=== PATIENT | male | born 1960 | race Caucasian/White ===

== ENCOUNTER 2017-10-27 11:45 | Inpatient (IN) | payer BC ==
[~2017-10-27] VITALS: Ht 177.8 cm; Wt 88.5 kg
[~2017-10-27 11:45] MED LIST: IBUP-232 PO; LOPE-1 PO; ONDA8TAB7 PO
[2017-10-27] MEDS ORDERED: ePHEDrine/NS 25 MG/5 ML SYRINGE IV ONE (12:00)
[2017-10-27] MEDS ORDERED: LIDOCAINE HCL 1% PF 5 ML SYRINGE OTHER ONE (12:00)
[2017-10-27] MEDS ORDERED: GLYCOPYRROLATE 1 MG/5 ML SYRINGE IV PUSH ONE (12:00)
[2017-10-27] MEDS ORDERED: LACTATED RINGER'S 1000 ML INJ 1,000 ML IV ONE (12:00)
[2017-10-27] MEDS ORDERED: DEXAMETHASONE SOD PHOS 4 MG/ML VIAL IV ONE (12:00)
[2017-10-27] MEDS ORDERED: ROCURONIUM INJ 50 MG/5 ML SYRINGE IV PUSH ONE (12:00)
[2017-10-27] MEDS ORDERED: NEOSTIGMINE 5 MG/5 ML SYRINGE IV PUSH ONE (12:00)
[2017-10-27] MEDS ORDERED: ONDANSETRON HCL 4 MG/2 ML VIAL IV ONE (12:00)
[2017-10-27] MEDS ORDERED: SODIUM CHLOR 0.9% 1000 ML INJ 2,000 ML IV ONE (12:00)
[2017-10-27] MEDS ORDERED: PROPOFOL 200 MG/20 ML AMP IV ONE (12:00)
[2017-10-27] MEDS ORDERED: fentaNYL CITRATE 250 MCG/5 ML AMP ONE (12:54)
[2017-10-27] MEDS ORDERED: CIPR500T2 PO (12:56)
[2017-10-27] MEDS ORDERED: POVIDONE IODINE 5% (ANTISEPSIS KIT) 4 APPLICATIONS EACH NARE PRN (13:00)
[2017-10-27] MEDS ORDERED: LACTATED RINGER'S 1000 ML IV PRN (13:00)
[2017-10-27] MEDS ORDERED: METRONIDAZOLE 500 MG/100 ML ISONTONIC SOLN IV SCH (13:00)
[2017-10-27] MEDS ORDERED: METOPROLOL TARTRATE 25 MG TAB PO PRN (13:00)
[2017-10-27] MEDS ORDERED: ceFAZolin 1,000 MG/NS 100 ML IV SCH ×2 (13:00)
[2017-10-27] MEDS ORDERED: SODIUM CHLORID 0.9% 500 ML IV PRN (13:00)
[2017-10-27] MEDS ORDERED: CHLORHEXIDINE GLUCONATE 2 % 1 PACK (2 CLOTHS) TOPICAL PRN (13:00)
[2017-10-27] MEDS ORDERED: INSULIN HUMAN REGULAR 1,000 UNITS/10 ML VIAL SQ PRN (13:00)
[2017-10-27] MEDS ORDERED: DEXT 5%-NACL 0.9% 1000 ML INJ 1,000 ML IV SCH (13:00)
[2017-10-27] MEDS ORDERED: ALVIMOPAN 12 MG CAPSULE ONE (13:11)
[2017-10-27] MEDS ORDERED: ALVIMOPAN 12 MG CAPSULE - On Call PO SCH (13:30)
[2017-10-27] MEDS ORDERED: ACETAMINOPHEN 1000 MG/100 ML 100 ML IV ONE (14:22)
[2017-10-27] MEDS ORDERED: ENALAPRILAT 1.25 MG/ML VIAL IV PUSH PRN (16:30)
[2017-10-27] MEDS ORDERED: NALOXONE HCL 0.4 MG/ML AMP IV PUSH PRN (16:30)
[2017-10-27] MEDS ORDERED: Post-op Orders (for Pharmacy) XX ONE (16:30)
[2017-10-27] MEDS ORDERED: MORPHINE SULFATE 30 MG/30 ML PCA IV SCH (16:30)
[2017-10-27] MEDS ORDERED: POTASSIUM CHLOR 20 MEQ PREMIX 100 ML IV PRN (16:30)
[2017-10-27] MEDS ORDERED: KETOROLAC TROMETHAMINE 30 MG/ML (IVP) VIAL IVP PRN (16:30)
[2017-10-27] MEDS: PCA - TOTAL MG MORPHINE DELIVERED PER SHIFT SCH ×2 (16:30→22:00)
[2017-10-27] MEDS ORDERED: POTASSIUM CHLOR 40 MEQ PREMIX 100 ML IV PRN (16:30)
[2017-10-27] MEDS ORDERED: SODIUM CHLORIDE 0.9% FLUSH 10 ML FLUSH IV FLUSH PRN (16:30)
[2017-10-27] MEDS ORDERED: ZOLPIDEM TARTRATE 5 MG TAB PO PRN (16:30)
[2017-10-27] MEDS ORDERED: DO NOT ADM ANY ANTICOAGULANT DRUGS PRN (16:40)
[2017-10-27] MEDS ORDERED: *morphine SULFATE 4 MG/ML PERIprocedure ONLY ONE (17:23)
--- NOTE | 2017-10-27 17:28 | MP ---
cc: Calos Chase MD,Kiera Kaur,Rebecca Jensen,Ondina ALEXANDER DATE OF OPERATION: 10/27/2017 PREOPERATIVE DIAGNOSIS: Rectal carcinoma. POSTOPERATIVE DIAGNOSIS: Rectal carcinoma. PROCEDURE PERFORMED: Rectosigmoidectomy with low anterior resection, coloanal anastomosis and diverting loop ileostomy with intraoperative colonoscopy and liver biopsy. SURGEON: Calos Chase MD RESIDENTIAL MONITOR: Dr. Tello ANESTHESIA: General endotracheal. ESTIMATED BLOOD LOSS: 200 mL OPERATIVE FINDINGS: [place] for [place] large bulky, near obstructing rectal cancer. He underwent colonoscopy by Dr. Alireza Junior and then underwent radiation therapy and chemotherapy with Dr. Rebecca Kaur and Dr. Ondina Jensen. This was a bulky lesion that had quite a bit of shrinkage, but did not disappear. It caused circumferential narrowing, but prior to surgery, I was able to place a flexible sigmoidoscope through the tumor. The bottom edge of the tumor was approximately 5-6 cm above the anorectal ring, about 10 cm above the anal verge. At surgery, he had quite a small male pelvis with a bulky rectal cancer, but a full rectosigmoid resection was done with a total mesenteric excision right to the lowermost portion of the rectum with a stapled coloanal anastomosis and a diverting ileostomy. Of note, in the right lobe of the liver was a small 1 mm lesion that was excised and sent for permanent section in the event it was metastatic disease. No other suspicious metastatic lesions were seen in the abdominal cavity. The tumor was quite bulky and abutted the prostate and bladder posteriorly, but we were able to dissect it free. Intraoperative colonoscopy showed a small 6 mm polyp at about 30 cm after resection and anastomosis. OPERATIVE TECHNIQUE: The patient was placed on the table in supine position. After adequate general endotracheal anesthesia, the legs were placed in the perineal lithotomy position. The abdomen and perineum were prepped and draped in the usual manner. A Lazar catheter was placed with mild difficulty, but it was able to be placed. Exploration of the abdominal cavity revealed the above-mentioned findings. Next, the abdomen was prepped and draped in the usual manner and a transverse infraumbilical skin incision was made and carried down through the subcutaneous tissue and the rectus muscles and the peritoneal cavity was entered with the above-mentioned findings. There was a small amount of ascites. This was aspirated free. The liver was normal except for this 1 mm nodule on the right dome as mentioned and it was excised with electrocautery and sent for permanent section. Remainder of the abdominal exploration as described above was normal. Our attention was turned to the sigmoid colon, which was quite redundant and was mobilized along its peritoneal reflection up to, but not including, the splenic flexure of the colon. The inferior mesenteric artery was clamped, cut and doubly ligated with 0 Vicryl ligature and the inferior mesenteric vein was taken proximally after clamping, cutting and ligating as well. The retrorectal space was entered and the dissection was taken down posteriorly. It was somewhat difficult because the rectal cancer and mesorectum was quite bulky and he had a small male pelvis, but we were able to dissect freely down posteriorly, laterally and then finally anteriorly. We were able to enter the cul-de-sac and divide the Denonvilliers fascia and dissect distally to the pelvic floor circumferentially. A full total mesenteric excision was done without breaching the mesentery. Next, the contour stapling device was placed around the lower rectum, just above the dentate line and it was fired, closing the rectal stump and dividing the rectum. The margin from the tumor was approximately 5 cm. Next, the area of the good quality sigmoid colon was identified for the area of the anastomosis and the remainder of the mesentery was clamped, cut and ligated, and then the pursestring stapling device was placed in the colon and the colon was divided and the specimen was removed from the table. Specimen was opened, revealing a circumferential ulcerated residual carcinoma or simply an ulcer, however, there was quite a stenosis associated with this. Dr. Tello then placed the EEA instrument transanally and the trocar was brought out through the center of the contour staple line and the instrument was connected, closed and fired, creating the circular anastomosis. Proctosigmoidoscopy examination was then done with air insufflation and saline solution in the pelvis. No air leaks were identified. Dr. Tello then did a Colonoscopy to the cecum, with 1 small 6 mm polyp at 30 cm in the colon, which was left alone. The bowel was checked for air leaks again and no leaks were identified with saline solution in the pelvis. Hemostasis was maintained throughout with electrocautery and ligature and the abdominal cavity was irrigated thoroughly with several liters of saline solution, aspirated dry, place was chosen for the ileostomy and the distal limb of the ileum was stapled closed with a TX 30 stapling device and the mesentery was opened for a short distance. A stoma site was made in the right upper quadrant and the lateral portion of the rectus muscle and the bowel was brought out through the stoma site. Next, the bowels were replaced in the abdominal cavity in an pyridine operator manner and the omentum was placed on the left side of the small bowel and left colic gutter and the abdominal cavity was closed in layers using a double stranded #1 PDS for the posterior rectus sheath. A liter of irrigation was used for the muscle layer and then the anterior rectus sheath was closed with double stranded #1 PDS as well. Subcutaneous tissue was irrigated thoroughly with saline solution, aspirated dry and the skin was closed with running 3-0 Vicryl subcuticular suture. The ileostomy was then matured in an end loop fashion with interrupted 3-0 Vicryl sutures and a 57 mm appliance was placed. It should be mentioned that a 10 flat Eric drain was placed in the pelvis posterior to the colorectal anastomosis and brought out through a separate stab wound in the right lower quadrant. Sponge, needle and instrument counts were reported as correct. Estimated blood loss was 200 mL. Operating time was 2 hours. The patient tolerated the procedure well and left the operating room in good condition. MD SHAUNA Nguyen/JEREL , 04:47 PM , 05:27 PM
[2017-10-27] MEDS: D5-LR + KCL 20 MEQ INJ 1,000 ML IV SCH ×2 (17:40→22:15)
[2017-10-27] MEDS ORDERED: ONDANSETRON ODT 4 MG TAB PO PRN (17:45)
[2017-10-27] MEDS: METOCLOPRAMIDE HCL 10 MG/2 ML VIAL IVS SCH (17:50)
[2017-10-27 17:51] LABS: BICARBONATE 24.8 MEQ/L (21.0-32.0); CALCIUM 7.8 MG/DL (8.5-10.1); CREATININE 0.86 MG/DL (0.60-1.30)
[2017-10-27 18:15] VITALS: BP 145/65; PULSE 59; PULSE 61; RESP 16; TEMP 97.3; O2SAT 93
[2017-10-27 18:31] LABS: AUTOMATED NEUTROPHIL # 11.5 TH/MM3 (1.8-7.7); BASOPHIL # 0.1 TH/MM3 (0-0.2); BASOPHIL % 0.7 % (0.0-2.0); EOSINOPHIL # 0.1 TH/MM3 (0-0.4); EOSINOPHIL % 0.5 % (0.0-4.0); HEMATOCRIT 40.5 % (39.0-51.0); HEMOGLOBIN 13.6 GM/DL (13.0-17.0); LYMPH % 2.6 % (9.0-44.0); LYMPHOCYTE # 0.3 TH/MM3 (1.0-4.8); MEAN CELL VOLUME 93.8 FL (80.0-100.0); MEAN CORPUSCULAR HEMOGLOBIN 31.5 PG (27.0-34.0); MEAN CORPUSCULAR HGB CONC 33.6 % (32.0-36.0); MEAN PLATELET VOLUME 8.7 FL (7.0-11.0); MONO % 4.1 % (0.0-8.0); MONOCYTE # 0.5 TH/MM3 (0-0.9); NEUT % 92.1 % (16.0-70.0); PLATELET COUNT 203 TH/MM3 (150-450); RED BLOOD COUNT 4.31 MIL/MM3 (4.50-5.90); RED CELL DISTRIBUTION WIDTH 14.6 % (11.6-17.2); WHITE BLOOD COUNT 12.5 TH/MM3 (4.0-11.0)
[2017-10-27 19:00] VITALS: BP 141/68; PULSE 62; RESP 18; TEMP 97.7; O2SAT 96
[2017-10-27] MEDS: SODIUM CHLORIDE 0.9% FLUSH 10 ML FLUSH IV FLUSH SCH (21:19)
[2017-10-27] MEDS: metroNIDAZOLE 500 MG INJ 100 ML IV SCH (21:19)
[2017-10-27 23:00] VITALS: BP 131/71; PULSE 64; PULSE 69; RESP 16; TEMP 98.1; O2SAT 98
[2017-10-28] VITALS (21 sets, daily range): BP systolic 126–149; BP diastolic 65–69; PULSE 52–80; RESP 16–18; TEMP 97.3–98.4; O2SAT 92–100
[2017-10-28] MEDS: METOCLOPRAMIDE HCL 10 MG/2 ML VIAL IVS SCH ×5 (02:18→23:11)
[2017-10-28] MEDS: D5-LR + KCL 20 MEQ INJ 1,000 ML IV SCH ×2 (03:12→09:36)
[2017-10-28 04:28] LABS: BASOPHIL % 0.1 % (0.0-2.0); HEMATOCRIT 40.6 % (39.0-51.0); HEMOGLOBIN 13.8 GM/DL (13.0-17.0); LYMPH % 1.6 % (9.0-44.0); LYMPHOCYTE # 0.2 TH/MM3 (1.0-4.8); MEAN CELL VOLUME 94.2 FL (80.0-100.0); MEAN PLATELET VOLUME 8.8 FL (7.0-11.0); MONO % 4.3 % (0.0-8.0); MONOCYTE # 0.6 TH/MM3 (0-0.9); PLATELET COUNT 182 TH/MM3 (150-450); RED BLOOD COUNT 4.31 MIL/MM3 (4.50-5.90); RED CELL DISTRIBUTION WIDTH 14.6 % (11.6-17.2); WHITE BLOOD COUNT 13.8 TH/MM3 (4.0-11.0)
[2017-10-28 05:05] LABS: BICARBONATE 21.5 MEQ/L (21.0-32.0); CALCIUM 7.8 MG/DL (8.5-10.1); CREATININE 0.98 MG/DL (0.60-1.30)
[2017-10-28] MEDS: metroNIDAZOLE 500 MG INJ 100 ML IV SCH ×2 (05:14→13:06)
[2017-10-28] MEDS: PCA - TOTAL MG MORPHINE DELIVERED PER SHIFT SCH ×3 (06:00→22:00)
[2017-10-28] MEDS: ALVIMOPAN 12 MG CAPSULE PO SCH ×2 (08:18→20:39)
[2017-10-28] MEDS: PANTOPRAZOLE SODIUM 40 MG VIAL IVP SCH (08:18)
[2017-10-28] MEDS: SODIUM CHLORIDE 0.9% FLUSH 10 ML FLUSH IV FLUSH SCH ×2 (08:19→20:39)
--- NOTE | 2017-10-28 14:55 | EKG ---
Date Performed: 10/27/2017 Time Performed: 12:16:52 PTAGE: 57 years EKG: SINUS BRADYCARDIA BORDERLINE ECG NO PREVIOUS TRACING DOCTOR: Kushal Turner Interpretating Date/Time 10/28/2017 14:52:43
[2017-10-28] MEDS: HEPARIN SODIUM - SQ 10,000 UNITS/ML VIAL SQ SCH ×2 (15:47→23:12)
--- NOTE | 2017-10-28 16:27 | HHI.FF ---
Face to Face Verification Diagnosis: (1) Rectal cancer Physical Therapy Order: Evaluate and Treat, Improve ambulation, Strength and gait training Home Health Nursing Order: Medical education Signs/symptoms of disease process Wound care and dressing changes Instructions: stoma teaching I have seen patient Arvind Post on 10/28/17. My clinical findings support the need for the requested home health care services because: Ltd mobility - disease progression Deconditioned w/ increased weakness Need for psychosocial assistance Infection w/ risk of complications I certify that my clinical findings support that this patient is homebound because: Post-op weakness Connor Vallejo MD Oct 28, 2017 16:27
[2017-10-28] MEDS: POTASSIUM CHLORIDE INJ 20 MEQ in LACTATED RINGER'S 1000 ML INJ 1,000 ML IV SCH (17:23)
--- NOTE | 2017-10-28 17:32 | PD.WCN.NOT ---
Wound Consult Description: Consult for NEW OSTOMY TEACHING per Dr Chase Communicated with: Patient Recommendation: Change ostomy appliance on right side abdomen every 3-5 days and PRN for leaks. Empty pouch of effluent when 1/3-1/2 full. Additional Information: Patient seen in [facility] for ostomy assessment and teaching. Ostomy Type: Ileostomy Surgeon: Calos Chase MD Date of Surgery: October 27, 2017 Complete: Starter kit (Verbal consent obtained), Education materials (Left at bedside with contents taken out and explained to patient) Educated patient on: Color and size of stoma Output Changing appliance Emptying pouch Starter kit Additional information Stoma is located on the right side abdomen measuring ~1 1/2" round, pink, edematous, moderately protruding, functioning with green liquid effluent noted in pouch that was not emptied at this time. Will follow up with patient @0800 on TuesdayOctober 31. Pam Kraus [facility] Oct 28, 2017 17:32
[2017-10-29] VITALS (20 sets, daily range): BP systolic 132–162; BP diastolic 66–88; PULSE 51–82; RESP 16–18; TEMP 97.4–98.7; O2SAT 91–96
[2017-10-29 03:59] LABS: AUTOMATED NEUTROPHIL # 8.5 TH/MM3 (1.8-7.7); BASOPHIL # 0.1 TH/MM3 (0-0.2); BASOPHIL % 0.7 % (0.0-2.0); EOSINOPHIL # 0.1 TH/MM3 (0-0.4); EOSINOPHIL % 1.2 % (0.0-4.0); HEMOGLOBIN 13.4 GM/DL (13.0-17.0); LYMPH % 5.6 % (9.0-44.0); LYMPHOCYTE # 0.6 TH/MM3 (1.0-4.8); MEAN CELL VOLUME 94.1 FL (80.0-100.0); MEAN CORPUSCULAR HEMOGLOBIN 31.6 PG (27.0-34.0); MEAN CORPUSCULAR HGB CONC 33.6 % (32.0-36.0); MONO % 6.3 % (0.0-8.0); MONOCYTE # 0.6 TH/MM3 (0-0.9); NEUT % 86.2 % (16.0-70.0); PLATELET COUNT 187 TH/MM3 (150-450); RED BLOOD COUNT 4.26 MIL/MM3 (4.50-5.90); RED CELL DISTRIBUTION WIDTH 14.7 % (11.6-17.2); WHITE BLOOD COUNT 9.8 TH/MM3 (4.0-11.0)
[2017-10-29 04:27] LABS: BICARBONATE 26.9 MEQ/L (21.0-32.0); CALCIUM 8.1 MG/DL (8.5-10.1); CREATININE 0.73 MG/DL (0.60-1.30)
[2017-10-29] MEDS: POTASSIUM CHLORIDE INJ 20 MEQ in LACTATED RINGER'S 1000 ML INJ 1,000 ML IV SCH ×2 (05:10→20:46)
[2017-10-29] MEDS: PCA - TOTAL MG MORPHINE DELIVERED PER SHIFT SCH ×4 (05:34→21:26)
[2017-10-29] MEDS: METOCLOPRAMIDE HCL 10 MG/2 ML VIAL IVS SCH ×3 (05:36→19:24)
[2017-10-29] MEDS: ALVIMOPAN 12 MG CAPSULE PO SCH ×2 (08:23→21:24)
[2017-10-29] MEDS: PANTOPRAZOLE SODIUM 40 MG VIAL IVP SCH (08:24)
[2017-10-29] MEDS: HEPARIN SODIUM - SQ 10,000 UNITS/ML VIAL SQ SCH ×2 (08:25→16:12)
[2017-10-29] MEDS: SODIUM CHLORIDE 0.9% FLUSH 10 ML FLUSH IV FLUSH SCH ×2 (08:25→21:00)
--- NOTE | 2017-10-29 08:34 | HHI.PR ---
Subjective Remarks C/R Surg POD # 2 afebrile, VSS UO good stoma functioning AMANDA mod Objective - Vital Signs Date Time Temp Pulse Resp B/P (MAP) Pulse Ox O2 Delivery O2 Flow Rate FiO2 10/29/17 06:09 61 10/29/17 06:08 18 10/29/17 04:00 98.5 146/76 (99) 92 10/28/17 20:00 Room Air 10/28/17 19:57 21 10/28/17 07:54 2.00 Result Diagram: 10/29/17 0320 10/29/17 0320 Objective Remarks PE alert Abd - soft, wound dry, stoma pink A/P Assessment and Plan Imp: adv diet decr IVF tx to floor leave Connor Powers MD Oct 29, 2017 08:34
[2017-10-29] MEDS: ACETAMINOPHEN/HYDROcodone 325 MG/5 MG TAB PO PRN ×2 (12:06→19:25)
[2017-10-29] MEDS: D5-LR + KCL 20 MEQ INJ 1,000 ML IV SCH (19:24)
[2017-10-30] VITALS: BP 132/59; PULSE 70; RESP 18; TEMP 97.9; O2SAT 92
[2017-10-30] MEDS: METOCLOPRAMIDE HCL 10 MG/2 ML VIAL IVS SCH ×2 (00:01→04:40)
[2017-10-30] MEDS: PCA - TOTAL MG MORPHINE DELIVERED PER SHIFT SCH (00:02)
[2017-10-30] MEDS: HEPARIN SODIUM - SQ 10,000 UNITS/ML VIAL SQ SCH ×4 (00:02→23:40)
[2017-10-30] MEDS: ACETAMINOPHEN/HYDROcodone 325 MG/5 MG TAB PO PRN ×5 (00:02→18:42)
[2017-10-30 08:00] VITALS: BP 117/69; PULSE 62; RESP 16; TEMP 97.8; O2SAT 93
[2017-10-30] MEDS: SODIUM CHLORIDE 0.9% FLUSH 10 ML FLUSH IV FLUSH SCH ×2 (09:00→21:15)
[2017-10-30] MEDS: ALVIMOPAN 12 MG CAPSULE PO SCH ×2 (09:02→21:15)
[2017-10-30] MEDS: PANTOPRAZOLE SODIUM 40 MG VIAL IVP SCH (09:02)
[2017-10-30] MEDS: POTASSIUM CHLORIDE INJ 20 MEQ in LACTATED RINGER'S 1000 ML INJ 1,000 ML IV SCH (11:12)
[2017-10-30 12:00] VITALS: BP 119/71; PULSE 58; RESP 20; TEMP 98; O2SAT 93
[2017-10-30] MEDS ORDERED: METOCLOPRAMIDE HCL 10 MG/2 ML VIAL IVS PRN (12:00)
--- NOTE | 2017-10-30 12:25 | HHI.PR ---
Subjective Remarks C/R Surg POD # 3 afebrile, VSS UO good stoma functioning AMANDA mod Objective - Vital Signs Date Time Temp Pulse Resp B/P (MAP) Pulse Ox O2 Delivery O2 Flow Rate FiO2 10/30/17 08:00 97.8 62 16 117/69 (85) 93 10/29/17 07:00 Room Air 10/28/17 19:57 21 10/28/17 07:54 2.00 Result Diagram: 10/29/17 0320 10/29/17 0320 Objective Remarks PE alert Abd - soft, wound dry, stoma pink A/P Assessment and Plan Imp: adv diet decr IVF DC Connor Powers MD Oct 30, 2017 12:25
[2017-10-30 16:00] VITALS: BP 115/68; PULSE 58; RESP 18; TEMP 98.4; O2SAT 94
[2017-10-30 20:00] VITALS: BP 139/66; PULSE 53; RESP 16; TEMP 97.7; O2SAT 94
[2017-10-31] VITALS: BP 127/69; PULSE 65; RESP 16; TEMP 97.9; O2SAT 94
[2017-10-31] MEDS: POTASSIUM CHLORIDE INJ 20 MEQ in LACTATED RINGER'S 1000 ML INJ 1,000 ML IV SCH (01:38)
[2017-10-31] MEDS: ACETAMINOPHEN/HYDROcodone 325 MG/5 MG TAB PO PRN ×2 (03:22→08:52)
[2017-10-31 08:00] VITALS: BP 126/60; PULSE 59; RESP 18; TEMP 97.9; O2SAT 92
[2017-10-31] MEDS: SODIUM CHLORIDE 0.9% FLUSH 10 ML FLUSH IV FLUSH SCH (08:50)
[2017-10-31] MEDS: ALVIMOPAN 12 MG CAPSULE PO SCH (08:50)
[2017-10-31] MEDS: HEPARIN SODIUM - SQ 10,000 UNITS/ML VIAL SQ SCH (08:51)
[2017-10-31] MEDS: PANTOPRAZOLE SODIUM 40 MG VIAL IVP SCH (08:51)
--- NOTE | 2017-10-31 11:11 | HHI.FF ---
Face to Face Verification Diagnosis: (1) Ileostomy in place (2) Rectal cancer Home Health Nursing Order: Medical education Wound care and dressing changes Instructions: Ileostomy supplies and teaching I have seen patient Arvind Post on 10/31/17. My clinical findings support the need for the requested home health care services because: Ltd mobility - disease progression Deconditioned w/ increased weakness Med compliance is questionable Limited ability to care for self I certify that my clinical findings support that this patient is homebound because: Post-op weakness Hx COPD- exertion dyspnea/weakness Unsteady gait/balance Unsafe to leave home unassisted Calos Chase MD Oct 31, 2017 11:11
[2017-10-31] MEDS ORDERED: LOPERAMIDE HCL 2 MG CAP PO PRN (11:15)
[2017-10-31] MEDS ORDERED: IBUPROFEN 600 MG TAB PO PRN (11:15)
--- NOTE | 2017-10-31 12:45 | PD.WCN.NOT ---
Wound Consult Description: Consult for NEW OSTOMY TEACHING per Dr Chase Communicated with: MIKE Carpenter Patient Recommendation: Change ostomy appliance on right side abdomen every 3-5 days and PRN for leaks. Empty pouch of effluent when 1/3-1/2 full. Additional Information: Patient seen on [place] for ostomy assessment, teaching, and appliance change. Ostomy Type: Ileostomy Surgeon: Calos Chase MD Date of Surgery: October 27, 2017 Complete: [facility] Education materials, Rx (left on chart), Other (appliance changed) Educated patient on: Removing appliance Cleansing peristomal skin Measuring stoma Mucocutaneous junction is intact with circumferential sutures that will dissolve Shaving the peristomal hair with an electric razor to avoid ingrown hairs Using the appropriate size wafer for the stoma size of 1 1/4" round One and two piece pouching systems available through [employer] How to obtain supplies through supply companies Emptying pouch before bed, checking it in the middle of a sleep cycle, and first thing in the morning Molding the moldable wafer Attaching the low pressure adaptor to wafer prior to application Applying the pouch and closing the end to avoid leaking Taking an extra pouching system on trips Cutting the cut to fit wafer Calling for questions and concerns Support groups for ostomates When to seek medical attention Additional information Patient seen on [place] for ostomy assessment, teaching (as above), and appliance change. Patient sitting up in chair stating he is ready to go home today. Supplies obtained for ostomy appliance change: Adhesive remover, wash cloths, mirror, skin barrier film, measuring tool, wafer and pouch. Wafer was removed to reveal a dark pink, moist, round, moderately protruding stoma, lumen noted at 6-7 o'clock functioning with brown liquid effluent. Stoma measures 1 1/ 4". Moldable wafer size 1 3/4" was used today with patient molding wafer appropriately for stoma size. Peristomal skin cleansed with water only and pat dry. Cavilon skin barrier film applied to peristomal skin and allowed to air dry. With assistance and visualization using mirror, patient was able to apply the wafer and secure pouch to flange. Pouch was closed at the end by patient. Supplies (cut to fit and moldable) were obtained for patient to go home with at discharge with one being cut for him in his current size. Pam Kraus [facility] Oct 31, 2017 12:45
--- NOTE | 2017-11-02 13:18 | MD ---
cc: Calos Chase MD,Ondina Kaur,Rebecca Junior,Kiera Cruz MD DATE OF DISCHARGE: 11/01/2017 ADMITTING DIAGNOSIS: Rectal cancer. DISCHARGE DIAGNOSES: Rectal cancer. OPERATIVE PROCEDURE 10/27/2017: 1. Rectosigmoidectomy, low anterior resection with coloanal anastomosis and diverting loop ileostomy. 2. Intraoperative colonoscopy. 3. Liver biopsy. HISTORY OF PRESENT ILLNESS: This patient was referred to me for a large bulky near obstructing rectal cancer. He underwent colonoscopy by Dr. Alireza Junior and then underwent radiation therapy and chemotherapy with Dr. Rebecca Kaur and Dr. Ondina Jensen. This was a bulky lesion and had quite a bit of shrinkage but did not disappear. It caused circumferential narrowing; however, prior to surgery, I was able to place a flexible sigmoidoscope through the tumor. LABORATORY DATA: The pathology report on the removed specimen revealed that the liver was a benign hepatic parenchyma with bile duct adenoma. This was not metastatic carcinoma. The rectum showed an ulcerated invasive, well to moderately differentiated adenocarcinoma with focal mucinous features. Metastatic adenocarcinoma was present in 1 of 13 pericolonic lymph nodes. Resection margins were negative for tumor. Tumor size was 5.5 x 3 cm; however, there was significant therapy effect. Tumor invaded through the muscularis propria into the perirectal soft tissue. All margins were uninvolved by invasive carcinoma. A T3 N1a lesion post-radiation therapy, chemotherapy. HOSPITAL COURSE: The patient was admitted to the hospital on 10/27/2017 and underwent a low anterior resection with coloanal anastomosis. The patient also had a diverting ileostomy because of the lowness of the anastomosis. Intraoperative colonoscopy was negative except for a small polyp in the descending colon. Postoperatively, the patient was started on a clear liquid diet the first postoperative day. He was gotten out of bed and ambulated. On second postoperative day, he was started on full liquid diet and he was started on a regular diet on the third postoperative day. Because it was difficult to insert his Lazar catheter, it was left in for an extra day. It was removed on the third postoperative day and after that he was able to void normally. The patient's ileostomy was functioning. He received postoperative supplies and ileostomy teaching from enterostomal nursing on the first postoperative day and the fourth postoperative day. He was discharged from the hospital on postoperative day #4 on regular diet. He is instructed to do no driving for 2 weeks, do no heavy lifting for 6 weeks over 10 pounds, and he was instructed to follow his ileostomy outputs and anything over 1200 mL he was instructed to call my office immediately so that he did not become rapidly dehydrated. All of these instructions were given to the patient. He was discharged on hydrocodone for pain and to resume all his other medications. MD SHAUNA Nguyen/REECE , 12:38 PM , 01:17 PM
== END 2017-10-31 13:47 | disposition home health service (06) | DRG 331 ==
LOC: HSDI 11:45 → HCPC 18:07 → N07B 10-29 17:19
PROVIDERS: ADMIT Colon & Rectal Surgery; ATTEND Colon & Rectal Surgery
PROC: 0DTN0ZZ Resection of Sigmoid Colon, Open Approach (ICD-10-PCS; 2017-10-27)
PROC: 0FB10ZX Excision of Right Lobe Liver, Open Approach, Diagnostic (ICD-10-PCS; 2017-10-27)
PROC: 0DBV0ZZ Excision of Mesentery, Open Approach (ICD-10-PCS; 2017-10-27)
PROC: 0DJD8ZZ Inspection of Lower Intestinal Tract, Via Natural or Artificial Opening Endoscopic (ICD-10-PCS; 2017-10-27)
PROC: 0D1B0Z4 Bypass Ileum to Cutaneous, Open Approach (ICD-10-PCS; principal; 2017-10-27 13:39)
DX: C20 Malignant neoplasm of rectum (principal); F17.210 Nicotine dependence, cigarettes, uncomplicated
CPT/HCPCS: 80048; 85025; 86850; 86900; 86901; 88307; 88309; 93005; 94150; C9113; J0131; J0690; J1100; J1644; J1885; J2270; J2405; J2710; J2765; J3010; J3480; J7030; J7120